=== PATIENT | female | born 1950 | race Caucasian/White ===

== ENCOUNTER 2018-11-08 14:02 | Day surgery (SDC) | payer MEDICARE, OTHER, SELFPAY ==
--- NOTE | 2018-11-06 19:24 | PM.PREOP ---
Pre-operative Note Interval Note History & Physical reviewed/Exam performed by Physician: Yes Changes to H&P: No
--- NOTE | 2018-11-06 19:25 | P.OP_ITS ---
Operative Date/Time/Diagnoses Date of procedure: 11/08/18 Time of procedure: 15:15 Procedure & Clinicians Procedure: Preoperative diagnoses: 1. Left nuclear sclerotic and cortical cataract. 2. Facioscapulohumeral muscular dystrophy. 3. Kyphosis. 4. Heart murmur with need for cardiac valve replacement in the near future. Postoperative diagnoses: 1. Cataract removed by phacoemulsification with placement of posterior chamber intraocular lens. Procedure: Phacoemulsification with posterior chamber intraocular lens implant Surgeon: Thu Ny MD Complications: None Specimen: None Implant: ZCBOO+24.5 Blood loss: None Anesthesia: Retrobulbar with monitored standby Description of procedure: Patient presents with a complaint of decreased vision due to cataract which is affecting activities of daily living. The patient wants surgery to improve vision. She is about to need cardiac surgery for valve replacement wishes to see better as her current vision is limiting her ability to function both distance and reading. She has a muscular dystrophy which is causing severe kyphosis as well and difficulty positioning. She wants distance target. She has medical clearance to proceed to cataract surgery prior to cardiac surgery and is her goal to be stable prior to her further cardiac testing. The patient was taken to the operating room and given IV sedation. A retrobulbar block consisting of 6 cc of 2% xylocaine without epinephrine mixed half and half with 0.5% Marcaine with 1 cc of hyaluronidase added is placed between the medial and lateral 1/3 of the inferior orbital rim. The eye is manually massaged for 30 sec, prepped using Betadine solution, and draped in the usual sterile fashion. Temporal approach was made, a 1 mm side-port incision was made 90? from the proposed clear corneal incision position. Phenylephrine 1.5% mixed with 1% xylocaine 0.2 cc was placed into the anterior chamber. Viscoat followed by Azalia was then placed. A 2.6 mm clear incision with a 2.6 mm blade was placed. A 360 degree capsulorrhexis style capsulotomy was then performed with a cystitome needle on a [employer]. Hydrodelineation and hydrodissection were performed. The phacoemulsification unit is introduced, and sculpting notice used to groove the central lens. It is then removed in chopping mode. Epi nucleus is removed with epinuclear mode and irrigation aspiration was used to remove the peripheral cortex. The posterior capsule is polished. The intraocular lens is selected, inspected, power confirmed, and placed in the posterior chamber. The pupil was constricted with Miostat.. The wound was stromally hydrated and tested for leaks, there was none and it was left sutureless. Vigamox 0.1 cc was placed into the anterior chamber. Kenalog 0.2 cc was placed in the superior subconjunctival space. A drop of antibiotic and was placed and the eye was patched and shielded. The patient was stable and returned to the recovery room in excellent condition. Dictated by: Thu Ny MD Copy to: [facility]
[2018-11-08 16:00] VITALS: BP 138/83; PULSE 53; RESP 18; TEMP 36.1; O2SAT 100; BMI 19.6
[2018-11-08] MEDS: PROPARACAINE 0.5% OPHTH SOL 2 DROPS EYE-OP (16:12)
[2018-11-08] MEDS: LACTATED RINGERS 1,000 ML 42 ML IV (16:17)
[2018-11-08] MEDS: CATARACT EYE COMPOUND (10 DROPS/SYRINGE) 3 DROPS EYE-OP (16:18)
--- NOTE | 2018-11-08 17:11 | SUR.PREOP ---
Dr. Blanchard to bedside for pt request to have IV fluids. IV fluids hung as ordered.
[2018-11-08] MEDS: BALANCED SALT IRRIG SOLN NO.2 15 ML IRR (17:53)
[2018-11-08] MEDS: CHONDROIDTIN/SOD HYALURONATE 1.05 ML SYRINGE INTRAOCULA (17:53)
[2018-11-08] MEDS: HYALURONATE SODIUM 10 MG/ML SYRINGE INJ (17:54)
[2018-11-08] MEDS: LIDOCAINE 1% W/EPI 20 ML INJ (17:55)
[2018-11-08] MEDS: MOXIFLOXACIN INJ 5 MG/ML VIAL EYE-OP (17:56)
[2018-11-08] MEDS: NEOMYCIN/POLY/DEX OPHTH OINT 1 APPLIC EYE-LEFT (17:56)
[2018-11-08] MEDS: PHENYLEPHRINE/LIDOCAINE VIAL (OR) 0.2 ML EYE-OP (17:57)
[2018-11-08] MEDS: TRIAMCINOLONE 50 MG/5 ML VIAL INJ (17:57)
[2018-11-08] MEDS: BALANCED SALT IRRIG SOLN NO.2 500 ML, EPINEPHrine 1 MG IRR (17:58)
[2018-11-08] MEDS: LIDOCAINE 2% 4 ML, BUPIVACAINE 0.5% (PF) 4 ML, HYALURONIDASE 150 UNIT INJ (17:59)
[2018-11-08 18:30] VITALS: BP 159/86; PULSE 61; RESP 18; TEMP 36.1; O2SAT 99
== END 2018-11-08 18:40 | disposition home or self-care (01) ==
LOC: OR 14:05
PROVIDERS: Visit Provider Ophthalmology
PROC: (CPT 66984; principal; 2018-11-08 15:15)
DX: H25.812 Combined forms of age-related cataract, left eye (principal); R01.1 Cardiac murmur, unspecified
CPT/HCPCS: 66984; J0171; J2704; J3301; J3470

== ENCOUNTER 2018-11-15 09:13 | Day surgery (SDC) | payer MEDICARE, OTHER, SELFPAY ==
--- NOTE | 2018-11-11 12:34 | PM.PREOP ---
Pre-operative Note Interval Note History & Physical reviewed/Exam performed by Physician: Yes Changes to H&P: No
--- NOTE | 2018-11-11 12:34 | PM.OP.1 ---
Operative Date/Time/Diagnoses Date of procedure: 11/15/18 Time of procedure: 10:45 Procedure & Clinicians Procedure: Preoperative diagnoses: 1. Right nuclear sclerotic and cortical cataract. 2. Facioscapulohumeral muscular dystrophy with severe kyphosis. 3. Heart murmur with me for heart valve replacement. Postoperative diagnoses: 1. Cataract removed by phacoemulsification with placement of posterior chamber intraocular lens. Procedure: Phacoemulsification with posterior chamber intraocular lens implant Surgeon: Thu Ny MD Complications: None Specimen: None Implant: ZCBOO+25.0 Blood loss: None Anesthesia: Retrobulbar with monitored standby Description of procedure: Patient presents with a complaint of decreased vision due to cataract which is affecting activities of daily living including driving and reading. The patient wants surgery to improve vision. She is due for a small incision heart valve surgery soon and wants to see better during her recovery. She is stable after left cataract surgery last week. The patient was taken to the operating room and given IV sedation. Careful positioning is done due to severe kyphosis with muscular dystrophy. A retrobulbar block consisting of 6 cc of 2% xylocaine without epinephrine mixed half and half with 0.5% Marcaine with 1 cc of hyaluronidase added is placed between the medial and lateral 1/3 of the inferior orbital rim. The eye is manually massaged for 30 sec, prepped using Betadine solution, and draped in the usual sterile fashion. Temporal approach was made, a 1 mm side-port incision was made 90? from the proposed clear corneal incision position. The pupil was mid dilated. Phenylephrine 1.5% mixed with 1% xylocaine 0.2 cc was placed into the anterior chamber. Viscoat followed by Azalia was then placed. A 2.6 mm clear incision with a 2.6 mm blade was placed. A 360 degree capsulorrhexis style capsulotomy was then performed with a cystitome needle on a [employer]. Hydrodelineation and hydrodissection were performed. The phacoemulsification unit is introduced, and sculpting notice used to groove the central lens. It is then removed in chopping mode. Epi nucleus is removed with epinuclear mode and irrigation aspiration was used to remove the peripheral cortex. The posterior capsule is polished. The intraocular lens is selected, inspected, power confirmed, and placed in the posterior chamber. The wound was stromally hydrated and tested for leaks, there was none and it was left sutureless. Vigamox 0.1 cc was placed into the anterior chamber. Kenalog 0.2 cc was placed in the superior subconjunctival space. A drop of antibiotic and was placed and the eye was patched and shielded. The patient was stable and returned to the recovery room in excellent condition. Dictated by: Thu Ny MD Copy to: [facility]
[2018-11-15 10:21] VITALS: BP 138/84; PULSE 64; RESP 15; TEMP 36.6; O2SAT 97; BMI 19.6
--- NOTE | 2018-11-15 11:28 | SUR.OPER ---
Supine on eye stretcher, head on extension cradle secured with tape. Arms tucked at sides with blanket. Pillow under knees.
[2018-11-15] MEDS: PHENYLEPHRINE/LIDOCAINE VIAL (OR) 0.2 ML EYE-OP (11:30)
[2018-11-15] MEDS: MOXIFLOXACIN INJ 5 MG/ML VIAL EYE-OP (11:30)
[2018-11-15] MEDS: TRIAMCINOLONE 50 MG/5 ML VIAL INJ (11:30)
[2018-11-15] MEDS: BALANCED SALT IRRIG SOLN NO.2 15 ML IRR (11:31)
[2018-11-15] MEDS: CHONDROIDTIN/SOD HYALURONATE 1.05 ML SYRINGE INTRAOCULA (11:31)
[2018-11-15] MEDS: HYALURONATE SODIUM 10 MG/ML SYRINGE INJ (11:31)
[2018-11-15] MEDS: NEOMYCIN/POLY/DEX OPHTH OINT 1 APPLIC EYE-RIGHT (11:32)
[2018-11-15] MEDS: BALANCED SALT IRRIG SOLN NO.2 500 ML, EPINEPHrine 1 MG IRR (11:32)
[2018-11-15] MEDS: LIDOCAINE 2% 4 ML, BUPIVACAINE 0.5% (PF) 4 ML, HYALURONIDASE 150 UNIT INJ (11:33)
[2018-11-15 12:11] VITALS: BP 149/90; PULSE 61; RESP 16; TEMP 37; O2SAT 98
== END 2018-11-15 12:13 | disposition home or self-care (01) ==
LOC: OR 09:16
PROVIDERS: Family Provider Family Medicine; PCP Family Medicine; Visit Provider Ophthalmology
PROC: (CPT 66984; principal; 2018-11-15 10:45)
DX: H25.811 Combined forms of age-related cataract, right eye (principal)
CPT/HCPCS: 66984; J0171; J2704; J3301; J3470

== ENCOUNTER 2019-04-26 08:44 | Emergency (ER) | payer MEDICARE, OTHER, SELFPAY ==
--- NOTE | 2019-04-26 08:52 | ED.ARRPALP ---
HPI - Arrhythmia/Palpitations General Chief Complaint: Arrhythmia/Palpitations Stated Complaint: rapid heart rate Time Seen by Provider: 04/26/19 08:46 Source: patient Mode of arrival: Ambulatory Limitations: no limitations History of Present Illness HPI narrative: 68-year-old female nonsmoker with relatively recent TAVR at the [facility] with subsequent postprocedural atrial fibrillation requiring cardioversion has been taking her Eliquis as prescribed and has not missed a dose. She presents from cardiac rehab with rapid AFib on the monitor. She reports a history of paroxysmal AFib and does not often feel when she is in atrial fib. Her only complaint is of increasing shortness of breath and fatigue for the past few days and 1 episode of palpitations yesterday morning. She denies fever or chills. She has been taking her meds as directed. She is otherwise fine and free of complaint MD complaint: rapid heart beat and palpitations Onset (ago): day(s) Duration: constant Severity: moderate Arrhythmia history: atrial fibrillation Associated symptoms: shortness of breath Related Data Home Medications Medication Instructions Recorded Confirmed aspirin 81 mg PO QDAY #0 09/06/12 11/08/18 [CRANBERRY ] QDAY #0 12/22/15 calcium carbonate [Calcium Antacid] 2 tab PO QDAY #0 12/22/15 11/08/18 carvedilol 6.25 mg PO BID 11/08/18 11/08/18 amiodarone 200 mg PO DAILY 04/26/19 04/26/19 apixaban [Eliquis] 5 mg PO BID 04/26/19 04/26/19 azelastine 1 spray INTRANASAL DIRECTED 04/26/19 04/26/19 metoprolol succinate 25 mg PO DAILY 04/26/19 04/26/19 potassium chloride 20 meq PO DAILY 04/26/19 torsemide 20 mg PO BID 04/26/19 Previous Rx's Medication Instructions Recorded estradiol [Vagifem] 10 mcg VG 2XWKLY #24 tab 09/16/16 Allergies Allergy/AdvReac Type Severity Reaction Status Date / Time cat pelt standardized Allergy Mild Verified 04/26/19 09:00 allergenic ex [CAT PELT STANDARDIZED EXTRACT] Review of Systems Constitutional Constitutional: Denies chills, Denies fatigue, Denies fever(s), Denies frequent falls, Denies lethargy and Denies weakness Eyes Eyes: Denies change in vision, Denies eye discharge, Denies irritation and Denies loss of vision ENT Ears, Nose, Mouth, and Throat: Denies change in voice, Denies dizziness, Denies neck pain, Denies sore throat and Denies throat swelling Cardiovascular Cardiovascular: Denies chest pain, Denies irregular heart rhythm, Denies lightheadedness, Reports palpitations, Reports dyspnea, Reports dyspnea on exertion and Denies orthopnea Respiratory Respiratory: Denies cough, Reports dyspnea, Reports dyspnea on exertion and Denies wheezing Gastrointestinal Gastrointestinal: Denies abdominal pain, Denies change in bowel habits, Denies diarrhea, Denies nausea and Denies vomiting Genitourinary Genitourinary: Denies hematuria, Denies flank pain, Denies urinary incontinence and Denies urinary urgency Musculoskeletal Musculoskeletal: Denies back pain, Denies muscle weakness, Denies neck pain, Denies numbness and Denies tingling Integumentary/Breasts Skin/Breast: Denies pruritus, Denies erythema, Denies rash and Denies wounds Neurologic Neurologic: Denies behavioral changes, Denies confusion, Denies dizziness, Denies frequent falls, Denies loss of vision, Denies numbness, Denies tingling and Denies weakness Psychiatric Psychiatric: Denies anxiety, Denies behavioral changes, Denies confusion, Denies depression, Denies homicidal ideation and Denies suicidal ideation Endocrine Endocrine: Denies fatigue, Denies flushing and Reports palpitations Hematologic/Lymphatic Hematologic/Lymphatic: Denies easy bruising Allergic/Immunologic Allergic/Immunologic: Denies urticaria, Denies throat swelling and Denies wheezing Patient History Surgical History History of tonsillectomy Status post hernia repair Family History Father Mental health problem Social History household members: spouse Smoking Status: Never smoker Exam Narrative Exam Narrative: GENERAL: [68] year old patient appears stated age. Well-nourished, well-developed patient, in mild distress. HEAD: Atraumatic. Normocephalic. EYES: Pupils equal round and reactive. Extraocular motions intact. No scleral icterus. No injection or drainage. ENT: Nose without bleeding, purulent drainage. Throat without erythema, tonsillar hypertrophy or exudate. Airway patent. NECK: Trachea midline. Non tender CARDIOVASCULAR: Tachycardic and irregular rhythm without murmurs, gallops, or rubs. RESPIRATORY: Clear to auscultation. Breath sounds equal bilaterally. No wheezes, rales, or rhonchi. GASTROINTESTINAL: Abdomen soft, non-tender, nondistended. EXTREMITIES: No edema or joint tenderness. BACK: Nontender without deformity or crepitance. No flank tenderness. NEURO: AOx3. SKIN: No rash or erythema of visible areas Initial Vital Signs Initial Vital Signs: Vital Signs Temperature 97.7 F 04/26/19 09:00 Pulse Rate 124 H 04/26/19 09:00 Respiratory Rate 18 04/26/19 09:00 Blood Pressure 92/60 04/26/19 09:00 Pulse Oximetry 96 04/26/19 09:00 Course Course Course Narrative: Patient has spontaneously converted to a sinus rhythm and has no symptoms. Repeat EKG ordered. Still no return call from Cardiology Orders Ordered: ED Orders 04/26/19 10:30 EKG-12 Lead Stat Discontinued Medications Sodium Chloride (Normal Saline 0.9%) 1,000 mls @ 150 mls/hr IV CONT AMANDEEP Last Infusion: 04/26/19 10:54 Dose: 0 mls/hr Documented by: Admin: 04/26/19 09:20 Dose: 150 mls/hr Documented by: AMBREEN Vital Signs Vital signs: Vital Signs - 8 hr 04/26/19 10:57 Pulse Rate 67 Respiratory Rate 22 Blood Pressure 101/63 Pulse Oximetry 96 MDM - Arrhythmia/Palpitations Lab Data Result diagrams: 04/26/19 08:52 04/26/19 08:52 Labs: Lab Results 04/26/19 04/26/19 Range/Units 08:52 08:52 WBC 7.9 (4.5-11.0) X10^3/uL RBC 4.51 (4.0-5.2) X10^6/uL Hgb 13.9 (12.0-16.0) g/dL Hct 41.6 (36-46) % MCV 92.2 (80-100) fL MCH 30.8 (26-34) PG MCHC 33.4 (30-36) % RDW 15.8 H (11.6-14.8) % Plt Count 202 (150-400) X10^3/uL Neut % (Auto) 72.8 (50-75) % Lymph % (Auto) 15.1 L (25-40) % Armstrong % (Auto) 9.6 (3-14) % Eos % (Auto) 1.5 L (2-4) % Baso % (Auto) 1.0 (0-2) % Neut # (Auto) 5800 (6909-2430) /uL Lymph # (Auto) 1200 (1852-7573) /uL Armstrong # (Auto) 800 (0-900) /uL Eos # (Auto) 100 (0-450) /uL Baso # (Auto) 100 (0-100) /uL Sodium 134 L (137-145) mmol/L Potassium 4.1 (3.4-5.1) mmol/L Chloride 95 L (98-107) mmol/L Carbon Dioxide 30 (22-32) mmol/L BUN 33 H (7-17) mg/dL Creatinine 1.20 H (0.52-1.04) mg/dL Estimated GFR 44.4 L (>60) mL/min BUN/Creatinine Ratio 27.5 H (6-22) Glucose 122 H (80-110) mg/dL Calcium 9.3 (8.4-10.2) mg/dL Total Bilirubin 0.8 (0.2-1.3) mg/dL AST 43 H (14-36) IU/L ALT 33 (<35) IU/L Alkaline Phosphatase 120 (38-126) U/L Total Creatine Kinase 98 (30-135) U/L CK-MB (CK-2) TNP CK-MB (CK-2) Rel Index TNP Troponin I 0.037 H (0.01-0.034) ng/mL Total Protein 7.2 (6.3-8.2) g/dL Albumin 4.1 (3.5-5.0) g/dL Globulin 3.1 (1.7-4.1) g/dL Albumin/Globulin Ratio 1.3 (1.0-2.8) Lipase 183 (23-300) U/L Imaging Data Chest x-ray: Radiologist's Impresson: [address] [id number] XRay Report Signed Patient: Florinda Pritchett JMR#: [id number] : 9Acct:[id number] Age/Sex: 68 / FDate of Service: 04/26/19 Loc: ED Accession Number: [id number] Procedure: XR chest 1V Ordering Provider: Angel Sam D.O. PROCEDURE: XR CHEST 1V INDICATIONS: shortness of breath. High heart rate. TECHNIQUE: One view of the chest was acquired. COMPARISON: [facility], CHEST 2 VIEW, 01/21/2014, 14:00. FINDINGS: Surgical changes and devices: Aortic valve graft. Lungs and pleura: Minimal appearance of increased vascularity. There is blunting of the costophrenic angles, left greater than right. No pleural effusions or pneumothorax. Mediastinum: Mediastinal contours appear normal. Heart size is normal. Bones and chest wall: No suspicious bony lesions. Overlying soft tissues appear unremarkable. IMPRESSION: Increased vascularity suggestive of edema trace effusions. Dictated by: Beverly Zamarripa M.D. on 04/26/2019 at 9:17 Approved by: Beverly Zamarripa M.D. on 04/26/2019 at 9:18 ECG Data Attestation: I personally reviewed and interpreted this ECG as follows: Interpretation: Rapid atrial fibrillation without signs of ST depression or elevation nor other signs suggestive of ischemia. MDM Narrative Medical decision making narrative: Patient with history of AFib on anticoagulation presents with relatively asymptomatic AFib with RVR from cardiac rehab. She had a large evaluation and planned cardioversion but a spontaneously resolved episode. A repeat EKG demonstrated normal sinus rhythm. Patient asymptomatic. She has been given return precautions and encouraged to follow up closely. Discharge Plan Departure Patient Disposition: Home Clinical Impression: Atrial fibrillation Qualifiers: Atrial fibrillation type: paroxysmal Qualified Code(s): I48.0 - Paroxysmal atrial fibrillation Discharge Date/Time: 04/26/19 10:59 Instructions: DI for Atrial Fibrillation Activity Restrictions/Additional Instructions: *You have been diagnosed with [paroxysmal atrial fibrillation] *What to do: *Take medications as directed *Follow up with your primary care provider in 2-3 days, call for an appointment. Let them know you were seen in the Emergency Department and that we ask that you be seen in follow up *Return to ER if you should have any new, worsening or concerning symptoms Prescriptions: No Action aspirin 81 MG tablet,delayed release (DR/EC) 81 mg PO QDAY Qty: 0 RF: 0 calcium carbonate [Calcium Antacid] 300 MG tablet,chewable 2 tab PO QDAY Qty: 0 RF: 0 [CRANBERRY ] QDAY Qty: 0 RF: 0 estradiol [Vagifem] 10 MCG tablet 10 mcg VG 2XWKLY Qty: 24 RF: 0 carvedilol 6.25 mg Tablet 6.25 mg PO BID RF: 0 torsemide 20 mg tablet 20 mg PO BID RF: 0 amiodarone 200 mg tablet 200 mg PO DAILY RF: 0 potassium chloride 20 mEq/15 mL liquid 20 meq PO DAILY RF: 0 metoprolol succinate 25 mg tablet extended release 24 hr 25 mg PO DAILY RF: 0 azelastine 137 mcg (0.1 %) aerosol,spray 1 spray INTRANASAL DIRECTED RF: 0 Eliquis 5 mg tablet 5 mg PO BID RF: 0 Referrals: Luigi Dempsey MD [Primary Care Provider] -
[2019-04-26 09:00] VITALS: BP 92/60; PULSE 124; RESP 18; TEMP 36.5; O2SAT 96; BMI 20.2
[2019-04-26 09:00] LABS: Add Manual Diff / Slide Review NO; Basophils Absolute Auto 100 /uL (0-100); Eosinophils Absolute Auto 100 /uL (0-450); Eosinophils Percent Auto 1.5 % (2-4); Hematocrit 41.6 % (36-46); Hemoglobin 13.9 g/dL (12.0-16.0); Lymphocytes Absolute Auto 1200 /uL (1100-4500); Lymphocytes Percent Auto 15.1 % (25-40); Mean Corpuscular HGB Conc 33.4 % (30-36); Mean Corpuscular Hemoglobin 30.8 PG (26-34); Mean Corpuscular Volume 92.2 fL (80-100); Monocytes Absolute Auto 800 /uL (0-900); Monocytes Percent Auto 9.6 % (3-14); Neutrophils Absolute Auto 5800 /uL (1500-7000); Neutrophils Percent Auto 72.8 % (50-75); Platelet Count 202 X10^3/uL (150-400); Red Blood Cell Count 4.51 X10^6/uL (4.0-5.2); Red Cell Distribution Width 15.8 % (11.6-14.8); White Blood Cell Count 7.9 X10^3/uL (4.5-11.0)
[2019-04-26 09:12] LABS: Alanine Aminotransferase 33 IU/L (<35); Albumin 4.1 g/dL (3.5-5.0); Albumin Globulin Ratio 1.3 (1.0-2.8); Alkaline Phosphatase 120 U/L (38-126); Aspartate Aminotransferase 43 IU/L (14-36); BUN Creatinine Ratio 27.5 (6-22); Bilirubin Total 0.8 mg/dL (0.2-1.3); Blood Urea Nitrogen 33 mg/dL (7-17); Calcium 9.3 mg/dL (8.4-10.2); Carbon Dioxide 30 mmol/L (22-32); Chloride 95 mmol/L (98-107); Creatine Kinase 98 U/L (30-135); Estimated Glomerular Filt Rate 44.4 mL/min (>60); Globulin 3.1 g/dL (1.7-4.1); Glucose 122 mg/dL (80-110); HEMOLYSIS < 15 (0-50); Lipase 183 U/L (23-300); Potassium 4.1 mmol/L (3.4-5.1); Sodium 134 mmol/L (137-145); Total Protein 7.2 g/dL (6.3-8.2)
[2019-04-26] MEDS: SODIUM CHLORIDE 0.9% 1,000 ML 150 ML IV (09:20)
[2019-04-26 09:30] VITALS: BP 91/55; PULSE 90; RESP 20; O2SAT 93
[2019-04-26 09:41] LABS: Troponin I 0.037 ng/mL (0.01-0.034)
[2019-04-26 10:57] VITALS: BP 101/63; PULSE 67; RESP 22; O2SAT 96
== END 2019-04-26 10:59 | disposition home or self-care (01) ==
PROVIDERS: Emergency Provider Emergency Medicine; Family Provider Family Medicine; PCP Family Medicine
DX: I48.0 Paroxysmal atrial fibrillation (principal)
CPT/HCPCS: 71045; 80053; 82550; 83690; 84484; 85025; 93005; 96360; 96361; 99284; 99285

== ENCOUNTER 2019-05-09 08:30 | Outpatient (RCR) | payer MEDICARE, OTHER, SELFPAY | END 2019-08-09 14:58 | LOC: CAR 08:30 | PROVIDERS: Family Provider Family Medicine; PCP Family Medicine; Visit Provider Family Medicine | DX: Z95.2 Presence of prosthetic heart valve (principal) | CPT/HCPCS: 93798 ==

== ENCOUNTER 2021-05-02 10:43 | Emergency (ER) | payer MEDICARE, OTHER, SELFPAY ==
[2021-05-02] VITALS (10 sets, daily range): BP systolic 100–127; BP diastolic 59–88; PULSE 55–70; RESP 16–20; TEMP 36.7; O2SAT 94–100; BMI 19.8
--- NOTE | 2021-05-02 10:52 | DI.RAD.S_ITS ---
PROCEDURE: XR CHEST 1V INDICATIONS: chest pain TECHNIQUE: One view of the chest was acquired. COMPARISON: [facility], CR, XR CHEST 1V, 04/26/2019, 8:58. FINDINGS: Surgical changes and devices: Percutaneous aortic valve Lungs and pleura: Elevated left hemidiaphragm, as before. No acute infiltrates. Mediastinum: Valve prosthesis. Mild cardiomegaly. Mediastinum shifted to the right. Stable findings. Bones and chest wall: No suspicious bony lesions. Overlying soft tissues appear unremarkable. IMPRESSION: Findings are stable. Aortic valve replacement, cardiomegaly, elevated left hemidiaphragm, no evidence acute pulmonary process. Dictated by: Gerard Alejandra M.D. on 05/02/2021 at 10:43 Approved by: Gerard Alejandra M.D. on 05/02/2021 at 10:44
[2021-05-02 11:29] LABS: Basophils Absolute Auto 100 /uL (0-100); Eosinophils Absolute Auto 0 /uL (0-450); Hemoglobin 14.9 g/dL (12.0-16.0); INR 2.5 (0.9-1.3); Monocytes Absolute Auto 800 /uL (0-900); Prothrombin Time 29.4 SECONDS (10.1-12.7)
[2021-05-02 11:31] LABS: PTT Partial Thromboplastin Tim 34 SECONDS (26.4-36.2)
[2021-05-02 11:34] LABS: Alanine Aminotransferase 43 IU/L (<35); Albumin 4.1 g/dL (3.5-5.0); Albumin Globulin Ratio 1.6 (1.0-2.8); Alkaline Phosphatase 79 U/L (38-126); Aspartate Aminotransferase 61 IU/L (14-36); BUN Creatinine Ratio 43.6 (6-22); Basophils Percent Auto 0.8 % (0-2); Bilirubin Total 1.7 mg/dL (0.2-1.3); Blood Urea Nitrogen 82 mg/dL (7-17); Carbon Dioxide 29 mmol/L (22-32); Chloride 95 mmol/L (98-107); Creatine Kinase 158 U/L (30-135); Eosinophils Percent Auto 0.7 % (2-4); Estimated Glomerular Filt Rate 26.3 mL/min (>60); Globulin 2.6 g/dL (1.7-4.1); Glucose 104 mg/dL (80-110); HEMOLYSIS 31 (0-50); Hematocrit 44.4 % (36-46); Lipase 219 U/L (23-300); Lymphocytes Absolute Auto 1000 /uL (1100-4500); Lymphocytes Percent Auto 14.9 % (25-40); Magnesium 2.3 mg/dL (1.6-2.3); Mean Corpuscular HGB Conc 33.5 % (30-36); Mean Corpuscular Hemoglobin 31.5 PG (26-34); Mean Corpuscular Volume 93.9 fL (80-100); Monocytes Percent Auto 11.6 % (3-14); Neutrophils Absolute Auto 4700 /uL (1500-7000); Platelet Count 151 X10^3/uL (150-400); Potassium 4.1 mmol/L (3.4-5.1); Red Blood Cell Count 4.72 X10^6/uL (4.0-5.2); Red Cell Distribution Width 15.3 % (11.6-14.8); Sodium 131 mmol/L (137-145); Total Protein 6.7 g/dL (6.3-8.2); White Blood Cell Count 6.5 X10^3/uL (4.5-11.0)
[2021-05-02 11:36] LABS: COVID19 -Nasal RAPID Negative (Negative)
[2021-05-02 11:42] LABS: NT-proBNP (BNP-Adult 18+) 8350 pg/mL (<125)
[2021-05-02 11:45] LABS: Troponin I 0.036 ng/mL (0.01-0.034)
[2021-05-02 11:46] LABS: Add Manual Diff / Slide Review SLIDE REVIEW
[2021-05-02 11:48] LABS: CKMB % Relative Index 5.6 % (1.5-5.0); Creatine Kinase MB 8.87 ng/mL (<2.37); RBC Morphology Normal Morphology
--- NOTE | 2021-05-02 12:28 | ED.ARRPALP ---
HPI - Arrhythmia/Palpitations General Chief Complaint: Arrhythmia/Palpitations Stated Complaint: afib Time Seen by Provider: 05/02/21 11:04 Source: patient Mode of arrival: Ambulatory Limitations: no limitations History of Present Illness HPI narrative: This is a 70-year-old female comes emergency department with complaint of 3 days of worsening CHF symptoms. Patient states she has had increased weight, shortness of breath and generally feeling unwell. She denies any chest pain or pressure. She denies any syncope or dizziness. She has had some persistent nausea for several weeks, no vomiting. She states swelling in her hands or better her legs are about the same they are always swollen. She has a diagnosis of atrial fibrillation, she is on medication for this and states she has believe she is chronically in AFib. 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 They also recommended doubling her torsemide at that time as well as her potassium which she did not do because she does not like how it makes her feel. Patient gets all her cardiology care [facility]. Her only other medications are anti anxiety which was started in February, medications for her heart including Eliquis which she takes regularly, torsemide, potassium, metoprolol, carvedilol and amiodarone and has a history of muscular dystrophy/FSHD. Patient has had knee surgery, hernia mass and tonsillectomy. No tobacco, alcohol or illicit. Patient states that she is unsure if she wants to have her mitral valve repaired and she is very clear that she is DNR/DNI. Dr. Dempsey is her PCP she lives on [address] and is accompanied by a friend today. Related Data Home Medications Medication Instructions Recorded Confirmed aspirin 81 mg tablet,delayed 81 mg PO QDAY #0 09/06/12 11/08/18 release [CRANBERRY ] QDAY #0 12/22/15 calcium carbonate 300 mg (750 mg) 2 tab PO QDAY #0 12/22/15 11/08/18 chewable tablet (Calcium Antacid) carvedilol 6.25 mg tablet 6.25 mg PO BID 11/08/18 11/08/18 amiodarone 200 mg tablet 200 mg PO DAILY 04/26/19 04/26/19 apixaban 5 mg tablet (Eliquis) 5 mg PO BID 04/26/19 04/26/19 azelastine 137 mcg (0.1 %) nasal 1 spray INTRANASAL DIRECTED 04/26/19 04/26/19 spray aerosol metoprolol succinate 25 mg 25 mg PO DAILY 04/26/19 04/26/19 tablet,extended release 24 hr potassium chloride 20 mEq/15 mL 20 meq PO DAILY 04/26/19 oral liquid torsemide 20 mg tablet 20 mg PO BID 04/26/19 Previous Rx's Medication Instructions Recorded estradiol 10 mcg vaginal tablet 10 mcg VG 2XWKLY #24 tab 09/16/16 (Vagifem) Allergies Allergy/AdvReac Type Severity Reaction Status Date / Time cat pelt standardized Allergy Mild Verified 05/02/21 10:49 allergenic ex [CAT PELT STANDARDIZED EXTRACT] Review of Systems Review of Systems ROS Unobtainable: All systems reviewed & are unremarkable except as noted in HPI and below Patient History Surgical History History of tonsillectomy Status post hernia repair Family History Father Mental health problem Social History household members: spouse Smoking Status: Never smoker Smoking Status: Never smoker alcohol intake frequency: holidays/special occasions only Alcohol type: beer Substance Use Type: does not use Exam Narrative Exam Narrative: GENERAL: Alert and oriented x three, tall thin elderly female in mild distress. HEENT: Head normocephalic, atraumatic, EOMI, pupils reactive, face symmetric, moist mucous membranes NECK: Supple, full range of motion CARDIOVASCULAR: Irregularly irregular rate and rhythm without murmurs, rubs or gallops. JVD. Bilateral lower extremity swelling. RESPIRATORY: Breath sounds equal bilaterally, no wheezes rales or rhonchi. No tachypnea accessory muscle use. ABDOMEN: Soft, nontender. Normoactive bowel sounds all 4 quadrants. No guarding or rebound, rigidity, no mass : No CVA tenderness EXTREMITIES: Normal range of motion. Neurovascularly intact. NEUROLOGICAL: Cranial nerves II through XII grossly intact. Moving all extremities SKIN: Warm, dry, no petechiae, no rashes or lesions. Initial Vital Signs Initial Vital Signs: Vital Signs Temperature 98.0 F 05/02/21 10:49 Pulse Rate 55 L 05/02/21 10:49 Respiratory Rate 18 05/02/21 10:49 Blood Pressure 100/70 05/02/21 10:49 Pulse Oximetry 95 05/02/21 10:49 Course Orders Ordered: Discontinued Medications Furosemide (Furosemide 100 Mg/10 Ml Vial) 60 mg IV NOW ONE Stop: 05/02/21 13:04 Last Admin: 05/02/21 13:22 Dose: 60 mg Documented by: AMBREEN Reevaluation(s) Reevaluation #1: Reviewed patient's labs, EKG and troponin. Patient does not wish to be kept for observation we discussed she needs diuresis by her renal function is slightly decreased. She has an order to be rechecked on Tuesday, the 04 of May. She would like to call her cardiology team on Tuesday. She is reluctant to pursue her valve replacement but we discussed that medical therapy may be inadequate and she may have a better quality and benefit with intervention but that this would be much better discussion have with her cardiology team. Patient is adamant that she is DNR DNI and does not want other aggressive measures and she is very sure she does not wish to be admitted today. She is not tachycardic, she is not hypoxic. Patient has not initiated measures recommended by her customer support executive but we discussed that doubling her torsemide will likely worsen her renal function and does need to be rechecked. She is comfortable with this plan. Time: 14:23 Vital Signs Vital signs: Vital Signs - 8 hr 05/02/21 10:49 05/02/21 11:10 05/02/21 11:11 Temperature 98.0 F Pulse Rate 55 L 70 68 Respiratory Rate 18 20 Blood Pressure 100/70 109/78 Pulse Oximetry 95 94 05/02/21 11:30 05/02/21 12:08 05/02/21 12:10 Temperature Pulse Rate 60 61 63 Respiratory Rate 16 18 18 Blood Pressure 105/66 127/59 L 127/59 L Pulse Oximetry 95 99 97 05/02/21 12:30 05/02/21 13:00 05/02/21 13:58 Temperature Pulse Rate 63 64 60 Respiratory Rate 17 19 18 Blood Pressure 106/67 106/67 Pulse Oximetry 100 98 98 05/02/21 14:16 Temperature Pulse Rate 68 Respiratory Rate 18 Blood Pressure 126/88 Pulse Oximetry 96 MDM - Arrhythmia/Palpitations Lab Data Result diagrams: 05/02/21 11:15 05/02/21 11:15 Labs: Lab Results 05/02/21 05/02/21 05/02/21 Range/Units 11:15 11:15 11:15 WBC 6.5 (4.5-11.0) X10^3/uL RBC 4.72 (4.0-5.2) X10^6/uL Hgb 14.9 (12.0-16.0) g/dL Hct 44.4 (36-46) % MCV 93.9 (80-100) fL MCH 31.5 (26-34) PG MCHC 33.5 (30-36) % RDW 15.3 H (11.6-14.8) % Plt Count 151 (150-400) X10^3/uL Neut % (Auto) 72.0 (50-75) % Lymph % (Auto) 14.9 L (25-40) % [place] % (Auto) 11.6 (3-14) % Eos % (Auto) 0.7 L (2-4) % Baso % (Auto) 0.8 (0-2) % Neut # (Auto) 4700 (3035-5725) /uL Lymph # (Auto) 1000 L (8421-1039) /uL [place] # (Auto) 800 (0-900) /uL Eos # (Auto) 0 (0-450) /uL Baso # (Auto) 100 (0-100) /uL Plt Morphology Comment RBC Morphology Normal morphology PT 29.4 H (10.1-12.7) SECONDS INR 2.5 H (0.9-1.3) APTT 34 (26.4-36.2) SECONDS Sodium 131 L (137-145) mmol/L Potassium 4.1 (3.4-5.1) mmol/L Chloride 95 L (98-107) mmol/L Carbon Dioxide 29 (22-32) mmol/L BUN 82 H (7-17) mg/dL Creatinine 1.88 H (0.52-1.04) mg/dL Estimated GFR 26.3 L (>60) mL/min BUN/Creatinine Ratio 43.6 H (6-22) Glucose 104 (80-110) mg/dL Calcium 9.0 (8.4-10.2) mg/dL Magnesium 2.3 (1.6-2.3) mg/dL Total Bilirubin 1.7 H (0.2-1.3) mg/dL AST 61 H (14-36) IU/L ALT 43 H (<35) IU/L Alkaline Phosphatase 79 (38-126) U/L Total Creatine Kinase 158 H (30-135) U/L CK-MB (CK-2) 8.87 H (<2.37) ng/mL CK-MB (CK-2) Rel Index 5.6 H (1.5-5.0) % Troponin I 0.036 H (0.01-0.034) ng/mL NT-Pro-B Natriuret Pep (<125) pg/mL Total Protein 6.7 (6.3-8.2) g/dL Albumin 4.1 (3.5-5.0) g/dL Globulin 2.6 (1.7-4.1) g/dL Albumin/Globulin Ratio 1.6 (1.0-2.8) Lipase 219 (23-300) U/L SARS-CoV-2 (PCR) (Negative) 05/02/21 05/02/21 05/02/21 Range/Units 11:15 11:20 13:30 WBC (4.5-11.0) X10^3/uL RBC (4.0-5.2) X10^6/uL Hgb (12.0-16.0) g/dL Hct (36-46) % MCV (80-100) fL MCH (26-34) PG MCHC (30-36) % RDW (11.6-14.8) % Plt Count (150-400) X10^3/uL Neut % (Auto) (50-75) % Lymph % (Auto) (25-40) % [place] % (Auto) (3-14) % Eos % (Auto) (2-4) % Baso % (Auto) (0-2) % Neut # (Auto) (6410-8119) /uL Lymph # (Auto) (2969-0740) /uL [place] # (Auto) (0-900) /uL Eos # (Auto) (0-450) /uL Baso # (Auto) (0-100) /uL Plt Morphology Comment RBC Morphology PT (10.1-12.7) SECONDS INR (0.9-1.3) APTT (26.4-36.2) SECONDS Sodium (137-145) mmol/L Potassium (3.4-5.1) mmol/L Chloride (98-107) mmol/L Carbon Dioxide (22-32) mmol/L BUN (7-17) mg/dL Creatinine (0.52-1.04) mg/dL Estimated GFR (>60) mL/min BUN/Creatinine Ratio (6-22) Glucose (80-110) mg/dL Calcium (8.4-10.2) mg/dL Magnesium (1.6-2.3) mg/dL Total Bilirubin (0.2-1.3) mg/dL AST (14-36) IU/L ALT (<35) IU/L Alkaline Phosphatase (38-126) U/L Total Creatine Kinase (30-135) U/L CK-MB (CK-2) (<2.37) ng/mL CK-MB (CK-2) Rel Index (1.5-5.0) % Troponin I 0.031 (0.01-0.034) ng/mL NT-Pro-B Natriuret Pep 8350 H (<125) pg/mL Total Protein (6.3-8.2) g/dL Albumin (3.5-5.0) g/dL Globulin (1.7-4.1) g/dL Albumin/Globulin Ratio (1.0-2.8) Lipase (23-300) U/L SARS-CoV-2 (PCR) Negative (Negative) Urine Dip Bedside Urine Glucose Negative Bedside Urine Bilirubin - Negative Bedside Urine Ketone - Negative Urine Specific [place] 1.015 Bedside Urine Occult Blood - Negative Bedside Urine pH 6 Bedside Urine Protein - Negative Bedside Urine Urobilinogen - Negative Bedside Urine Nitrite - Negative Bedside Urine Leukocytes - Negative Esterase Imaging Data Chest x-ray: Radiologist's Impresson: [address] [address] XRay Report Signed Patient: Florinda Pritchett MR#: [id number] : 1950 Acct:[id number] Age/Sex: 70 / F Date of Service: 05/02/21 Loc: ED Accession Number: [id number] ?? Procedure: XR chest 1V Ordering Provider: Shawnee Null D.O. PROCEDURE:? XR CHEST 1V ? INDICATIONS:? chest pain ? TECHNIQUE:? One view of the chest was acquired.? ? COMPARISON:? [facility], CR, XR CHEST 1V, 04/26/2019, 8:58. ? FINDINGS:? ? Surgical changes and devices:? Percutaneous aortic valve ? Lungs and pleura:? Elevated left hemidiaphragm, as before.? No acute infiltrates. ? Mediastinum:? Valve prosthesis.? Mild cardiomegaly.? Mediastinum shifted to the right.? Stable findings. ? Bones and chest wall:? No suspicious bony lesions.? Overlying soft tissues appear unremarkable.? ? IMPRESSION:? Findings are stable.? Aortic valve replacement, cardiomegaly, elevated left hemidiaphragm, no evidence acute pulmonary process. ? ? Dictated by: Gerard Alejandra M.D. on 05/02/2021 at 10:43 ? ? Approved by: Gerard Alejandra M.D. on 05/02/2021 at 10:44?? ECG Data Attestation: I personally reviewed and interpreted this ECG as follows: Prior ECG tracings: available for review Interpretation: AFib, rate of 62 QRS of 128 QTC of 493. Patient appears to be in AFib, right bundle-branch block. She has T-wave flipped in 2, 3 in AVF as well as lateral leads. Patient has prior EKG shows that these are new ST changes and is upright in aVL which is also unchanged. Her prior EKGs from 04/26/2019. [facility] Narrative Medical decision making narrative: This is a 70-year-old female who appears to be in congestive heart failure with the setting of a prior TAVR, chronic atrial fibrillation which is anticoagulated and has been told that her last cardiology visit on April 22 that her mitral valve is leaking and she needed to double her torsemide and potassium which she has not done. Patient's exam findings, lab findings are consistent with CHF exacerbation. Troponin is indeterminate but consistent with last visit in March. Her LFTs are slightly elevated and she has had some persistent nausea so abdominal ultrasound was ordered although this may be related to her for heart failure as well. Creatinine is also elevated in comparison to most recent. Sodium is 131 and she appears appropriately anticoagulated with INR of 2.5. COVID swab is negative. Patient is somewhat reluctant to pursue treatment but has been feeling unwell so she presented today. Discharge Plan Departure Patient Disposition: Home Clinical Impression: CHF exacerbation, MARILYN (acute kidney injury), Elevated liver enzymes Instructions: DI for Heart Failure Activity Restrictions/Additional Instructions: Call to follow-up with your cardiology team on Tuesday. I would recommend that you double your torsemide and your potassium as recommended by her cardiology team. This can affect her renal function and her creatinine was elevated in comparison to her last visit in March so it should be rechecked again on Tuesday just you are ready planned Your labs do reflect fluid overload your BNP is 8000 today. Your liver enzymes are slightly elevated this may be related to your congestive heart failure. Your ultrasound does not show any clear causes today of the changes to her liver enzymes. Please return for worsening shortness of breath, passing out, increasing swelling, chest pain or pressure, persistent nausea and vomiting or other new or concerning symptoms. Prescriptions: No Action aspirin 81 MG tablet,delayed release (DR/EC) 81 mg PO QDAY Qty: 0 0RF calcium carbonate [Calcium Antacid] 300 MG tablet,chewable 2 tab PO QDAY Qty: 0 0RF [CRANBERRY ] QDAY Qty: 0 0RF estradiol [Vagifem] 10 MCG tablet 10 mcg VG 2XWKLY Qty: 24 0RF carvedilol 6.25 mg Tablet 6.25 mg PO BID 0RF torsemide 20 mg tablet 20 mg PO BID 0RF amiodarone 200 mg tablet 200 mg PO DAILY 0RF potassium chloride 20 mEq/15 mL liquid 20 meq PO DAILY 0RF metoprolol succinate 25 mg tablet extended release 24 hr 25 mg PO DAILY 0RF azelastine 137 mcg (0.1 %) aerosol,spray 1 spray INTRANASAL DIRECTED 0RF Eliquis 5 mg tablet 5 mg PO BID 0RF Referrals: Luigi Dempsey MD [Primary Care Provider] -
--- NOTE | 2021-05-02 13:03 | DI.US.S_ITS ---
PROCEDURE: US ABDOMEN LIMITED INDICATIONS: NAUSEA TECHNIQUE: Real-time focused scanning was performed of the abdomen, with image documentation. COMPARISON: None. FINDINGS: Gallbladder is surgically absent. Prominent biliary tree, within normal limits post cholecystectomy. Common bile duct measures 9.4 mm. Common hepatic duct measures 2.7 mm. No focal liver masses identified on images provided. Normal hepatic echogenicity. Visualized portions of the pancreas are unremarkable. IMPRESSION: 1. Remote cholecystectomy. 2. Otherwise unremarkable right upper quadrant ultrasound. Dictated by: Gerard Alejandra M.D. on 05/02/2021 at 13:29 Approved by: Gerard Alejandra M.D. on 05/02/2021 at 13:31
[2021-05-02] MEDS: FUROSEMIDE 100 MG/10 ML VIAL 60 MG IV (13:22)
[2021-05-02 14:04] LABS: Troponin I 0.031 ng/mL (0.01-0.034)
== END 2021-05-02 14:30 | disposition home or self-care (01) ==
PROVIDERS: Emergency Provider Emergency Medicine; Family Provider Family Medicine; PCP Family Medicine
DX: I50.9 Heart failure, unspecified (principal); N17.9 Acute kidney failure, unspecified; R74.8 Abnormal levels of other serum enzymes; Z66 Do not resuscitate; Z79.01 Long term (current) use of anticoagulants; Z20.822 Contact with and (suspected) exposure to COVID-19
CPT/HCPCS: 36415; 71045; 76705; 80053; 81003; 82550; 82553; 83690; 83735; 83880; 84484; 85025; 85610; 85730; 87635; 93005; 96374; 99284; C9803; J1940

== ENCOUNTER → 2021-05-06 14:54 | Outpatient (CLI) | payer MEDICARE, OTHER, SELFPAY ==
[2021-05-06 16:53] LABS: BUN Creatinine Ratio 40.1 (6-22); Blood Urea Nitrogen 57 mg/dL (7-17); Calcium 9.5 mg/dL (8.4-10.2); Carbon Dioxide 39 mmol/L (22-32); Chloride 96 mmol/L (98-107); Estimated Glomerular Filt Rate 36.4 mL/min (>60); Glucose 126 mg/dL (80-110); HEMOLYSIS < 15 (0-50); Potassium 3.8 mmol/L (3.4-5.1); Sodium 137 mmol/L (137-145)
== END ==
PROVIDERS: Family Provider Family Medicine; PCP Family Medicine; Referring Provider Emergency Medicine; Visit Provider Emergency Medicine
DX: Z13.228 Encounter for screening for other metabolic disorders (principal); N18.9 Chronic kidney disease, unspecified; I50.9 Heart failure, unspecified
CPT/HCPCS: 36415; 80048

== ENCOUNTER 2021-05-10 14:49 | Emergency (ER) | payer MEDICARE, OTHER, SELFPAY ==
[2021-05-10] VITALS (7 sets, daily range): BP systolic 92–118; BP diastolic 57–81; PULSE 66–120; RESP 19–27; TEMP 36.1; O2SAT 90–100; BMI 20.2
--- NOTE | 2021-05-10 15:01 | DI.RAD.S_ITS ---
PROCEDURE: XR CHEST 1V INDICATIONS: shortness of breath TECHNIQUE: One view of the chest was acquired. COMPARISON: [facility], CR, CHEST 2 VIEW, 01/21/2014, 14:00. [facility], CR, XR CHEST 1V, 05/02/2021, 11:17. [facility], CR, XR CHEST 1V, 04/26/2019, 8:58. FINDINGS: Surgical changes and devices: TAVR stent. Lungs and pleura: Lungs are clear. No pleural effusions or pneumothorax. Mediastinum: Mediastinal contours appear unchanged. Asymmetric elevation of the left hemidiaphragm. Heart size is enlarged. Bones and chest wall: No suspicious bony lesions. Prominent gastric bubble. IMPRESSION: No acute abnormality identified. Cardiomegaly. Persistent prominent gastric bubble. Dictated by: Girma Pollard M.D. on 05/10/2021 at 15:19 Approved by: Girma Pollard M.D. on 05/10/2021 at 15:23
[2021-05-10 15:28] LABS: Hematocrit 45.7 % (36-46); Hemoglobin 15.3 g/dL (12.0-16.0); Mean Corpuscular HGB Conc 33.5 % (30-36); Mean Corpuscular Hemoglobin 31.7 PG (26-34); Mean Corpuscular Volume 94.7 fL (80-100); Platelet Count 154 X10^3/uL (150-400); Red Blood Cell Count 4.83 X10^6/uL (4.0-5.2); Red Cell Distribution Width 15.1 % (11.6-14.8); White Blood Cell Count 8.4 X10^3/uL (4.5-11.0)
[2021-05-10 15:31] LABS: Add Manual Diff / Slide Review YES
[2021-05-10 15:32] LABS: Lactate (Lactic Acid) 1.5 mmol/L (0.7-2.1)
[2021-05-10 15:33] LABS: Alanine Aminotransferase 41 IU/L (<35); Albumin 4.1 g/dL (3.5-5.0); Albumin Globulin Ratio 1.6 (1.0-2.8); Alkaline Phosphatase 117 U/L (38-126); Aspartate Aminotransferase 53 IU/L (14-36); BUN Creatinine Ratio 42.5 (6-22); Bilirubin Total 1.6 mg/dL (0.2-1.3); Blood Urea Nitrogen 76 mg/dL (7-17); Carbon Dioxide 26 mmol/L (22-32); Chloride 95 mmol/L (98-107); Estimated Glomerular Filt Rate 27.8 mL/min (>60); Globulin 2.6 g/dL (1.7-4.1); Glucose 107 mg/dL (80-110); HEMOLYSIS 31 (0-50); Potassium 4.6 mmol/L (3.4-5.1); Sodium 131 mmol/L (137-145); Total Protein 6.7 g/dL (6.3-8.2)
[2021-05-10 15:50] LABS: Neutrophils Absolute Manual 6384 /uL (3000-5900); Total Cells Counted 100
[2021-05-10 15:51] LABS: RBC Morphology Normal Morphology
--- NOTE | 2021-05-10 16:35 | ED.SOB ---
HPI - SOB/Dyspnea <Luigi Geller MD - Last Filed: 05/22/21 07:46> General Chief Complaint: Shortness of Breath/Dyspnea Stated Complaint: can't breathe, very breathless, fatigued Time Seen by Provider: 05/10/21 16:17 Source: patient Mode of arrival: Wheelchair History of Present Illness HPI Narrative: This 70-year-old patient presents with complaints of dyspnea. She underwent TAVR in 2019. She is anticoagulated. She also has history of AFib. She was seen by her log scaler at the [facility] the 28 of April. Torsemide dosing was doubled. She has not felt well since then. She has dyspnea. She has chronic peripheral edema, but she has increased peripheral edema at this time. She complains of dyspnea. She has no chest pain. She denies orthopnea. She has no URI symptoms, no fever chills. She has no productive cough. She has no GI complaints. She was seen here 05/02/2021. At that time complaining of dyspnea, and overall not feeling well. She complained of increased lower extremity edema, much as today. The treating physician obtained information that the patient had a leaky mitral valve, apparently the torsemide was supposed to control her symptoms. Little seems to have changed over the past few days. Related Data Home Medications Medication Instructions Recorded Confirmed aspirin 81 mg tablet,delayed 81 mg PO QDAY #0 09/06/12 11/08/18 release [CRANBERRY ] QDAY #0 12/22/15 calcium carbonate 300 mg (750 mg) 2 tab PO QDAY #0 12/22/15 11/08/18 chewable tablet (Calcium Antacid) carvedilol 6.25 mg tablet 6.25 mg PO BID 11/08/18 11/08/18 amiodarone 200 mg tablet 200 mg PO DAILY 04/26/19 04/26/19 apixaban 5 mg tablet (Eliquis) 5 mg PO BID 04/26/19 04/26/19 azelastine 137 mcg (0.1 %) nasal 1 spray INTRANASAL DIRECTED 04/26/19 04/26/19 spray aerosol metoprolol succinate 25 mg 25 mg PO DAILY 04/26/19 04/26/19 tablet,extended release 24 hr potassium chloride 20 mEq/15 mL 20 meq PO DAILY 04/26/19 oral liquid torsemide 20 mg tablet 20 mg PO BID 04/26/19 Previous Rx's Medication Instructions Recorded estradiol 10 mcg vaginal tablet 10 mcg VG 2XWKLY #24 tab 09/16/16 (Vagifem) Allergies Allergy/AdvReac Type Severity Reaction Status Date / Time cat pelt standardized Allergy Mild Verified 05/10/21 15:00 allergenic ex [CAT PELT STANDARDIZED EXTRACT] Review of Systems <Luigi Geller MD - Last Filed: 05/22/21 07:46> Constitutional Constitutional: Denies body ache(s), Denies chills, Reports fatigue, Denies fever(s), Reports malaise, Denies night sweats and Reports weakness Eyes Eyes: Denies change in vision ENT Ears, Nose, Mouth, and Throat: Denies neck pain, Denies sinus pain and Denies sore throat Cardiovascular Cardiovascular: Denies chest pain, Denies syncope, Reports rapid heart rate, Reports edema and Reports dyspnea Respiratory Respiratory: Denies chest congestion, Reports cough, Denies hemoptysis and Reports dyspnea Gastrointestinal Gastrointestinal: Denies abdominal pain, Denies cramping and Denies nausea Genitourinary Genitourinary: Denies dysuria Musculoskeletal Musculoskeletal: Denies arthralgias, Denies myalgias, Denies neck pain and Denies numbness Integumentary/Breasts Skin/Breast: Denies rash Neurologic Neurologic: Denies confusion, Denies syncope, Denies numbness and Reports weakness Psychiatric Psychiatric: Denies confusion and Reports depression Endocrine Endocrine: Reports fatigue Hematologic/Lymphatic On Anticoagulants: Yes Patient History <Luigi Geller MD - Last Filed: 05/22/21 07:46> Medical History (Updated 05/17/21 @ 00:00 by ) Chronic a-fib Congestive heart failure 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 Renal insufficiency Surgical History History of tonsillectomy S/P TAVR (transcatheter aortic valve replacement) Status post hernia repair Family History Father Mental health problem Social History household members: spouse Smoking Status: Never smoker Smoking Status: Never smoker alcohol intake frequency: holidays/special occasions only Alcohol type: beer Substance Use Type: does not use Exam <Luigi Geller MD - Last Filed: 05/22/21 07:46> Initial Vital Signs Initial Vital Signs: Vital Signs Temperature 96.9 F L 05/10/21 14:53 Pulse Rate 120 H 05/10/21 14:53 Respiratory Rate 20 05/10/21 14:53 Blood Pressure 103/64 05/10/21 14:53 Pulse Oximetry 97 05/10/21 14:53 Const General: cooperative, No acute distress and anxious HENMT Head: normocephalic and atraumatic Face and sinus: normal facial exam Eyes General: appearance normal, both eyes and all related structures Neck Neck: JVD (3 cm JVD bilaterally) Chest Chest: normal inspection of the chest Resp Other: Rales 1/[address] up both lung [place]. Cardio Rhythm: abnormal rhythm irregularly irregular Heart Sounds: S1 normal, S2 normal and murmur systolic Bruits: no carotid bruits GI Inspection: normal to inspection Palpation: soft, No splenomegaly and No tender Auscultation: normal bowel sounds Back/Spine/Pelvis Back: normal to inspection and No back tenderness Skin General: no rashes or lesions noted Neuro General: patient alert, patient awake, patient oriented x3 and no focal motor deficits Extrem Other: 4+ bilateral lower extremity edema. Psych Mental Status: mental status grossly normal <Shawnee Null DO - Last Filed: 05/11/21 02:40> Initial Vital Signs Initial Vital Signs: Vital Signs Temperature 96.9 F L 05/10/21 14:53 Pulse Rate 120 H 05/10/21 14:53 Respiratory Rate 20 05/10/21 14:53 Blood Pressure 103/64 05/10/21 14:53 Pulse Oximetry 97 05/10/21 14:53 Course <Luigi Geller MD - Last Filed: 05/22/21 07:46> Orders Ordered: Discontinued Medications Furosemide (Furosemide 100 Mg/10 Ml Vial) 80 mg IV NOW ONE Stop: 05/10/21 16:31 Last Admin: 05/10/21 16:40 Dose: 80 mg Documented by: RUTH Vital Signs Vital signs: Vital Signs - 8 hr 05/10/21 19:00 05/10/21 20:32 Pulse Rate 67 Respiratory Rate 27 H Blood Pressure 118/81 92/70 Pulse Oximetry 96 <Shawnee Null DO - Last Filed: 05/11/21 02:40> Orders Ordered: Discontinued Medications Furosemide (Furosemide 100 Mg/10 Ml Vial) 80 mg IV NOW ONE Stop: 05/10/21 16:31 Last Admin: 05/10/21 16:40 Dose: 80 mg Documented by: RUTH Reevaluation(s) Reevaluation #1: Patient was signed out to myself. Seen independently evaluated by myself. They were waiting for records from [facility] but these are unlikely to arrives evening. Patient was seen by myself on the 02 of May. Her EKG, labs reviewed troponin was added on and is indeterminate. It has been indeterminate in the past but is slightly higher than last visit. Patient does appear to be in CHF. We discussed that I would like to repeat her troponin she does not wish to do so. She denies any chest pain or pressure. She states she feels much better and was able to ambulate the department after Lasix and some diuresis. Patient is going to call her log scaler tomorrow she had female or texting interactions through my chart but did not have a phone conversation or [id number] conversation with her log scaler after her last visit here on the . She states that they have talked about replacing her mitral or tricuspid valve which she would likely benefit from. She has been taking her torsemide at 40 mg twice daily. She does not like to take it though and tries to avoid taking it. She is reluctant to pursue surgery and is reluctant to take her torsemide. We discussed that if she finds herself in a situation where these both seem like inappropriate options for her is patent of care might be appropriate. She does express interest in this and states she has an appointment in 1 week with primary care and will talk with them about this. Time: 19:54 Vital Signs Vital signs: Vital Signs - 8 hr 05/10/21 19:00 05/10/21 20:32 Pulse Rate 67 Respiratory Rate 27 H Blood Pressure 118/81 92/70 Pulse Oximetry 96 MDM - SOB/Dyspnea <Luigi Geller MD - Last Filed: 05/22/21 07:46> Lab Data Result diagrams: 05/10/21 15:10 05/10/21 15:10 Labs: Lab Results 05/10/21 05/10/21 05/10/21 Range/Units 14:10 15:10 15:10 WBC 8.4 (4.5-11.0) X10^3/uL RBC 4.83 (4.0-5.2) X10^6/uL Hgb 15.3 (12.0-16.0) g/dL Hct 45.7 (36-46) % MCV 94.7 (80-100) fL MCH 31.7 (26-34) PG MCHC 33.5 (30-36) % RDW 15.1 H (11.6-14.8) % Plt Count 154 (150-400) X10^3/uL Neut % (Auto) Not Reportable Lymph % (Auto) Not Reportable [place] % (Auto) Not Reportable Eos % (Auto) Not Reportable Baso % (Auto) Not Reportable Lymph # (Auto) Not Reportable [place] # (Auto) Not Reportable Baso # (Auto) Not Reportable Total Counted 100 Seg Neutrophils % 76.0 H (38-70) % Lymphocytes % (Manual) 10.0 L (25-45) % Atypical Lymphs % 3.0 H ( - 0) % Monocytes % (Manual) 8.0 (2-11) % Eosinophils % (Manual) 1.0 L (2-4) % Basophils % (Manual) 2.0 H (0-1) % Neutrophils # (Manual) 6384 H (1655-0053) /uL RBC Morphology Normal morphology Sodium 131 L (137-145) mmol/L Potassium 4.6 (3.4-5.1) mmol/L Chloride 95 L (98-107) mmol/L Carbon Dioxide 26 (22-32) mmol/L BUN 76 H (7-17) mg/dL Creatinine 1.79 H (0.52-1.04) mg/dL Estimated GFR 27.8 L (>60) mL/min BUN/Creatinine Ratio 42.5 H (6-22) Glucose 107 (80-110) mg/dL Lactate (0.7-2.1) mmol/L Calcium 9.0 (8.4-10.2) mg/dL Total Bilirubin 1.6 H (0.2-1.3) mg/dL AST 53 H (14-36) IU/L ALT 41 H (<35) IU/L Alkaline Phosphatase 117 (38-126) U/L Total Creatine Kinase 122 (30-135) U/L CK-MB (CK-2) 7.51 H (<2.37) ng/mL CK-MB (CK-2) Rel Index 6.2 H* (1.5-5.0) % Troponin I 0.048 H (0.01-0.034) ng/mL NT-Pro-B Natriuret Pep (<125) pg/mL Total Protein 6.7 (6.3-8.2) g/dL Albumin 4.1 (3.5-5.0) g/dL Globulin 2.6 (1.7-4.1) g/dL Albumin/Globulin Ratio 1.6 (1.0-2.8) 05/10/21 05/10/21 Range/Units 15:10 16:30 WBC (4.5-11.0) X10^3/uL RBC (4.0-5.2) X10^6/uL Hgb (12.0-16.0) g/dL Hct (36-46) % MCV (80-100) fL MCH (26-34) PG MCHC (30-36) % RDW (11.6-14.8) % Plt Count (150-400) X10^3/uL Neut % (Auto) Lymph % (Auto) [place] % (Auto) Eos % (Auto) Baso % (Auto) Lymph # (Auto) [place] # (Auto) Baso # (Auto) Total Counted Seg Neutrophils % (38-70) % Lymphocytes % (Manual) (25-45) % Atypical Lymphs % ( - 0) % Monocytes % (Manual) (2-11) % Eosinophils % (Manual) (2-4) % Basophils % (Manual) (0-1) % Neutrophils # (Manual) (5159-6189) /uL RBC Morphology Sodium (137-145) mmol/L Potassium (3.4-5.1) mmol/L Chloride (98-107) mmol/L Carbon Dioxide (22-32) mmol/L BUN (7-17) mg/dL Creatinine (0.52-1.04) mg/dL Estimated GFR (>60) mL/min BUN/Creatinine Ratio (6-22) Glucose (80-110) mg/dL Lactate 1.5 (0.7-2.1) mmol/L Calcium (8.4-10.2) mg/dL Total Bilirubin (0.2-1.3) mg/dL AST (14-36) IU/L ALT (<35) IU/L Alkaline Phosphatase (38-126) U/L Total Creatine Kinase (30-135) U/L CK-MB (CK-2) (<2.37) ng/mL CK-MB (CK-2) Rel Index (1.5-5.0) % Troponin I (0.01-0.034) ng/mL NT-Pro-B Natriuret Pep 8500 H (<125) pg/mL Total Protein (6.3-8.2) g/dL Albumin (3.5-5.0) g/dL Globulin (1.7-4.1) g/dL Albumin/Globulin Ratio (1.0-2.8) Imaging Data Chest x-ray: Radiologist's Impression: No acute abnormality identified. Cardiomegaly. Persistent prominent gastric bubble. ? ECG Data Attestation: I personally reviewed and interpreted this ECG as follows: (AFib rate 118 beats per minute. Nonspecific IVCD. No acute ST T wave changes.) Interpretation: The patient has chronic AFib, with persistent CHF. She has improved with initial dose of Lasix. She has significant peripheral edema with renal failure and the known heart disease. I have requested records from the [facility], thus far unavailable. The patient fully improved, should be able to go home. More detailed review of the patient's medical history may be useful. Or perhaps she needs to call her doctor tomorrow. Now, at change of shift, I have transitioned care of the case to the incoming ER doctor, Dr. Null for ongoing care and disposition. MDM Narrative Medical decision making narrative: The patient arrives with CHF obvious on exam, her BNP is 8500. She is anticoagulated for AFib. She takes torsemide as an outpatient, IV Lasix was given here due to the fluid overload. Her creatinine is 1.79. <Shawnee Null, DO - Last Filed: 05/11/21 02:40> Lab Data Labs: Lab Results 05/10/21 05/10/21 05/10/21 Range/Units 14:10 15:10 15:10 WBC 8.4 (4.5-11.0) X10^3/uL RBC 4.83 (4.0-5.2) X10^6/uL Hgb 15.3 (12.0-16.0) g/dL Hct 45.7 (36-46) % MCV 94.7 (80-100) fL MCH 31.7 (26-34) PG MCHC 33.5 (30-36) % RDW 15.1 H (11.6-14.8) % Plt Count 154 (150-400) X10^3/uL Neut % (Auto) Not Reportable Lymph % (Auto) Not Reportable [place] % (Auto) Not Reportable Eos % (Auto) Not Reportable Baso % (Auto) Not Reportable Lymph # (Auto) Not Reportable [place] # (Auto) Not Reportable Baso # (Auto) Not Reportable Total Counted 100 Seg Neutrophils % 76.0 H (38-70) % Lymphocytes % (Manual) 10.0 L (25-45) % Atypical Lymphs % 3.0 H ( - 0) % Monocytes % (Manual) 8.0 (2-11) % Eosinophils % (Manual) 1.0 L (2-4) % Basophils % (Manual) 2.0 H (0-1) % Neutrophils # (Manual) 6384 H (7783-7710) /uL RBC Morphology Normal morphology Sodium 131 L (137-145) mmol/L Potassium 4.6 (3.4-5.1) mmol/L Chloride 95 L (98-107) mmol/L Carbon Dioxide 26 (22-32) mmol/L BUN 76 H (7-17) mg/dL Creatinine 1.79 H (0.52-1.04) mg/dL Estimated GFR 27.8 L (>60) mL/min BUN/Creatinine Ratio 42.5 H (6-22) Glucose 107 (80-110) mg/dL Lactate (0.7-2.1) mmol/L Calcium 9.0 (8.4-10.2) mg/dL Total Bilirubin 1.6 H (0.2-1.3) mg/dL AST 53 H (14-36) IU/L ALT 41 H (<35) IU/L Alkaline Phosphatase 117 (38-126) U/L Total Creatine Kinase 122 (30-135) U/L CK-MB (CK-2) 7.51 H (<2.37) ng/mL CK-MB (CK-2) Rel Index 6.2 H* (1.5-5.0) % Troponin I 0.048 H (0.01-0.034) ng/mL NT-Pro-B Natriuret Pep (<125) pg/mL Total Protein 6.7 (6.3-8.2) g/dL Albumin 4.1 (3.5-5.0) g/dL Globulin 2.6 (1.7-4.1) g/dL Albumin/Globulin Ratio 1.6 (1.0-2.8) 05/10/21 05/10/21 Range/Units 15:10 16:30 WBC (4.5-11.0) X10^3/uL RBC (4.0-5.2) X10^6/uL Hgb (12.0-16.0) g/dL Hct (36-46) % MCV (80-100) fL MCH (26-34) PG MCHC (30-36) % RDW (11.6-14.8) % Plt Count (150-400) X10^3/uL Neut % (Auto) Lymph % (Auto) [place] % (Auto) Eos % (Auto) Baso % (Auto) Lymph # (Auto) [place] # (Auto) Baso # (Auto) Total Counted Seg Neutrophils % (38-70) % Lymphocytes % (Manual) (25-45) % Atypical Lymphs % ( - 0) % Monocytes % (Manual) (2-11) % Eosinophils % (Manual) (2-4) % Basophils % (Manual) (0-1) % Neutrophils # (Manual) (3338-9406) /uL RBC Morphology Sodium (137-145) mmol/L Potassium (3.4-5.1) mmol/L Chloride (98-107) mmol/L Carbon Dioxide (22-32) mmol/L BUN (7-17) mg/dL Creatinine (0.52-1.04) mg/dL Estimated GFR (>60) mL/min BUN/Creatinine Ratio (6-22) Glucose (80-110) mg/dL Lactate 1.5 (0.7-2.1) mmol/L Calcium (8.4-10.2) mg/dL Total Bilirubin (0.2-1.3) mg/dL AST (14-36) IU/L ALT (<35) IU/L Alkaline Phosphatase (38-126) U/L Total Creatine Kinase (30-135) U/L CK-MB (CK-2) (<2.37) ng/mL CK-MB (CK-2) Rel Index (1.5-5.0) % Troponin I (0.01-0.034) ng/mL NT-Pro-B Natriuret Pep 8500 H (<125) pg/mL Total Protein (6.3-8.2) g/dL Albumin (3.5-5.0) g/dL Globulin (1.7-4.1) g/dL Albumin/Globulin Ratio (1.0-2.8) ECG Data Interpretation: The patient has chronic AFib, with persistent CHF. She has improved with initial dose of Lasix. She has significant peripheral edema with renal failure and the known heart disease. I have requested records from the [facility], thus far unavailable. The patient fully improved, should be able to go home. More detailed review of the patient's medical history may be useful. Or perhaps she needs to call her doctor tomorrow. Now, at change of shift, I have transitioned care of the case to the incoming ER doctor, Dr. Null for ongoing care and disposition. Dr. Null 05/10/21: Patient signed out to myself. Seen in independently evaluated by myself. Patient is in CHF with known valvular disease. She was diuresed in the department. BNP is elevated, troponin was added on this indeterminate. Slightly elevated from past visit. Patient and I discussed observation when she does not wish to do, repeating her troponin which she also does not wish to do she understands the risks. Patient prefers to return home at this time she feels significantly better. She is going to call her cardiology team in the morning in order to discuss options. Patient's records had not arrived via this time. Discharge Plan Departure Patient Disposition: Home Clinical Impression: CHF exacerbation, MARILYN (acute kidney injury), Chronic a-fib Instructions: DI for Heart Failure Activity Restrictions/Additional Instructions: Follow-up with your log scaler tomorrow. They can help guide your medication. As discussed your heart is not squeezing well and causing fluid to back up. This will likely to continue to worsen. I would discuss with your log scaler about options for valve replacement. If you find this is not an option you wish to pursue and medication is not adequately able to treat you and make you comfortable I would recommend discussing with her primary care about palliative care at your follow-up appointment next week. Please return if you are having new or worsening chest pain, shortness of breath, passing out, worsening swelling of her extremities or other new or concerning symptoms. Prescriptions: No Action aspirin 81 MG tablet,delayed release (DR/EC) 81 mg PO QDAY Qty: 0 0RF calcium carbonate [Calcium Antacid] 300 MG tablet,chewable 2 tab PO QDAY Qty: 0 0RF [CRANBERRY ] QDAY Qty: 0 0RF estradiol [Vagifem] 10 MCG tablet 10 mcg VG 2XWKLY Qty: 24 0RF carvedilol 6.25 mg Tablet 6.25 mg PO BID 0RF torsemide 20 mg tablet 20 mg PO BID 0RF amiodarone 200 mg tablet 200 mg PO DAILY 0RF potassium chloride 20 mEq/15 mL liquid 20 meq PO DAILY 0RF metoprolol succinate 25 mg tablet extended release 24 hr 25 mg PO DAILY 0RF azelastine 137 mcg (0.1 %) aerosol,spray 1 spray INTRANASAL DIRECTED 0RF Eliquis 5 mg tablet 5 mg PO BID 0RF Referrals: Luigi Dempsey MD [Primary Care Provider] -
[2021-05-10] MEDS: FUROSEMIDE 100 MG/10 ML VIAL 80 MG IV (16:40)
[2021-05-10 16:51] LABS: NT-proBNP (BNP-Adult 18+) 8500 pg/mL (<125)
[2021-05-10 19:28] LABS: Creatine Kinase 122 U/L (30-135)
[2021-05-10 19:40] LABS: Troponin I 0.048 ng/mL (0.01-0.034)
[2021-05-10 19:43] LABS: Creatine Kinase MB 7.51 ng/mL (<2.37)
[2021-05-10 19:49] LABS: CKMB % Relative Index 6.2 % (1.5-5.0)
== END 2021-05-10 20:36 | disposition home or self-care (01) ==
PROVIDERS: Emergency Medicine; Emergency Provider Emergency Medicine; Family Provider Family Medicine; PCP Family Medicine
DX: I50.9 Heart failure, unspecified (principal); N17.9 Acute kidney failure, unspecified; I48.20 Chronic atrial fibrillation, unspecified; Z79.01 Long term (current) use of anticoagulants
CPT/HCPCS: 36415; 71045; 80053; 82550; 82553; 83605; 83880; 84484; 85007; 85025; 93005; 93010; 96374; 99284; 99285; J1940

== ENCOUNTER → 2021-09-10 14:16 | Outpatient (CLI) | payer MEDICARE, OTHER, SELFPAY | PROVIDERS: Family Provider Family Medicine; PCP Family Medicine; Referring Provider Ophthalmology; Visit Provider Ophthalmology | DX: H16.201 Unspecified keratoconjunctivitis, right eye (principal) | CPT/HCPCS: 87070; 87205 ==

== ENCOUNTER → 2021-09-30 10:13 | Outpatient (CLI) | payer MEDICARE, OTHER, SELFPAY ==
[2021-09-30 11:13] LABS: BUN Creatinine Ratio 33.5 (6-22); Blood Urea Nitrogen 64 mg/dL (7-17); Calcium 8.8 mg/dL (8.4-10.2); Carbon Dioxide 33 mmol/L (22-32); Chloride 94 mmol/L (98-107); Estimated Glomerular Filt Rate 28 mL/min (>60); Glucose 104 mg/dL (80-110); HEMOLYSIS < 15 (0-50); Magnesium 2.5 mg/dL (1.6-2.3); Phosphorous 4.3 mg/dL (2.8-4.1); Potassium 4.7 mmol/L (3.4-5.1); Sodium 135 mmol/L (137-145)
== END ==
PROVIDERS: Family Provider Family Medicine; PCP Family Medicine; Referring Provider Internal Medicine Cardiovascular Disease; Visit Provider Internal Medicine Cardiovascular Disease
DX: I50.33 Acute on chronic diastolic (congestive) heart failure (principal); N17.9 Acute kidney failure, unspecified
CPT/HCPCS: 36415; 80048; 83735; 84100

== ENCOUNTER → 2021-10-05 15:40 | Outpatient (CLI) | payer MEDICARE, OTHER, SELFPAY ==
[2021-10-05 17:21] LABS: BUN Creatinine Ratio 27.9 (6-22); Blood Urea Nitrogen 50 mg/dL (7-17); Calcium 8.4 mg/dL (8.4-10.2); Carbon Dioxide 28 mmol/L (22-32); Chloride 96 mmol/L (98-107); Estimated Glomerular Filt Rate 30 mL/min (>60); Glucose 160 mg/dL (80-110); HEMOLYSIS < 15 (0-50); Magnesium 2.2 mg/dL (1.6-2.3); Phosphorous 4.1 mg/dL (2.8-4.1); Potassium 4.9 mmol/L (3.4-5.1); Sodium 132 mmol/L (137-145)
== END ==
PROVIDERS: Family Provider Family Medicine; PCP Family Medicine; Referring Provider Internal Medicine Cardiovascular Disease; Visit Provider Internal Medicine Cardiovascular Disease
DX: I50.33 Acute on chronic diastolic (congestive) heart failure (principal); N17.9 Acute kidney failure, unspecified
CPT/HCPCS: 36415; 80048; 83735; 84100

== ENCOUNTER 2021-11-16 14:15 | Outpatient (RCR) | payer MEDICARE, OTHER, SELFPAY | END 2021-11-16 16:15 | LOC: CAR 14:15 | PROVIDERS: Family Provider Family Medicine; PCP Family Medicine; Referring Provider Student in an Organized Health Care Education/Training Program; Visit Provider Student in an Organized Health Care Education/Training Program | DX: Z95.2 Presence of prosthetic heart valve (principal) | CPT/HCPCS: 93798 ==